=== PATIENT | female | born 1965 | race Two or more races ===

== ENCOUNTER 2016-10-22 12:09 | Emergency (ER) | payer OTHER ==
[2016-10-22 12:17] VITALS: TEMP 97.7
[2016-10-22] MEDS ORDERED: NS 1,000 ML IV ONE ×2 (12:31→14:49)
[2016-10-22] MEDS ORDERED: ONDANSETRON 4 MG/2 ML VIAL IVP ONE (12:32)
--- NOTE | 2016-10-22 12:37 | EDPHY ---
H & P Stated Complaint: whole upper body hurts Source: Patient, Family Exam Limitations: No limitations - Personal History LMP (Females 10-55): Post Menopausal Current Tetanus/Diphtheria Vaccine: Unsure Current Tetanus Diphtheria and Acellular Pertussis (TDAP): Unsure - Medical/Surgical History Hx Asthma: No Hx Chronic Respiratory Disease: No Hx Diabetes: No Hx Cardiac Disease: No Hx Renal Disease: No Hx Cirrhosis: No Hx Alcoholism: No Hx HIV/AIDS: No Hx Splenectomy or Spleen Trauma: No - Social History Smoking Status: Current every day smoker HPI/ROS: CHIEF COMPLAINT: chest pain, body aches, cough HISTORY OF PRESENT ILLNESS: complains of chest pain, shortness of breath, pain from her middle of her chest up. Pain started this morning upon waking. It actually started in the left shoulder and has spread to the entire upper portion of her body. It is severe, 10/10 pain worse with any kind of movement. No position of comfort. Has no cough at this time, but she does have some shortness of breath. She had fever and cough earlier this week. No abdominal urinary complaints. No falls or trauma. No headache. No neck pain or stiffness. No other associated complaints or modifying factors. REVIEW OF SYSTEMS: Ten systems reviewed and are negative unless otherwise noted in the HPI EXAMINATION General Appearance: Alert, no distress , in obvious pain, pacing in the room Head: normocephalic, atraumatic Eyes: Pupils equal and round, no conjunctival pallor or injection ENT, Mouth: Mucous membranes moist. Uvula midline. No erythema or edema. Neck: Normal inspection, supple, Tenderness to palpation of the trapezius. No meningismus Respiratory: Lungs are clear to auscultation Cardiovascular: tachycardic rate with Regular rhythm. No murmur. Gastrointestinal: Abdomen is soft and nontender . No CVA tenderness Back: tender to palpation and soft tissue of the thoracic and upper back. There is no midline tenderness at any level. No crepitus or deformity. Neurological: A&O, nonfocal, Strength is symmetric in all limbs. Skin: Warm and dry, no rash Extremities: Nontender, no pedal edema Psychiatric: Mood and affect normal DIFFERENTIAL DIAGNOSES: Including but not limited to Pneumonia, PC, bronchitis, pneumonitis, viral illness, influenza MDM: 12:33 p.m. Chest pain, back pain, body aches with pain generalized from her middle of her chest. She has no meningismus but she does complain of severe pain in all these areas. Laboratory studies have been ordered as well as CT scan of the chest. 1:40 p.m. patient is resting much more comfortably at this time. The pain medication is significantly improving her pain. She still has pain from the middle of her back up. Her neck is ranging at this time without meningismus or pain. Minimal headache. CT scan of the chest is pending at this time. Laboratory studies reveal leukocytosis but no other abnormality. She informs me that she has been seen by hematology and oncology for this leukocytosis, but they have found no abnormalities. chest x-ray has no pneumonia or pneumothorax but there are perihilar changes as noted in the report. CT scan will help us further delineate this. Vital signs are stable with mild tachycardia but no hypoxia and she is normotensive. 2:35 p.m. notified by radiologist Dr. Marin that the CT scan is negative for PE or pneumonia. No acute findings of any kind on the CT scan. I have re-evaluated the patient. She is feeling better although not resolved. She feels that her pain is tolerable at this time but she is worried that her pain would get worse when she goes home. I have ordered Toradol and I will reassess 3:00 p.m. pain is improving intolerable. We discussed discharge home with anti- inflammatories and pain medication as this is probably a viral syndrome causing a pleurisy and potentially even mild pericarditis. she is comfortable this plan. She will be discharged home with pain medications, nausea medicine, instructions to take anti-inflammatories [id number] every 6-8 hours. I would like her to call her primary care physician in the morning for follow-up. she is to return to the emergency department should her pain worsen or become intolerable to her with the medications we Have provided. She is comfortable this plan and will be discharged home in stable condition. SUPERVISION: Patient was evaluated in conjunction with the supervising physician. Please see their note for details. (Kristian Will) Constitutional: Initial Vital Signs Temperature (C) 97.7 F 10/22/16 12:15 Heart Rate 121 H 10/22/16 12:15 Respiratory Rate 20 10/22/16 12:15 Blood Pressure 134/99 H 02/16/17 12:15 O2 Sat (%) 97 10/22/16 12:15 O2 Delivery Mode Room Air O2 (L/minute) 2 Allergies/Adverse Reactions: No Known Allergies Allergy (Unverified 10/22/16 12:17) Home Medications: Medication Instructions Recorded Ondansetron Odt [Zofran Odt 4 mg 4 mg PO Q6 PRN #12 tab 10/22/16 (*)] oxyCODONE HCL/ACETAMINOPHEN 1 each PO Q6 PRN #20 tablet 10/22/16 [Percocet 7.5-325 mg Tablet] Medical Decision Making - Diagnostics EKG Interpretation: 12-lead EKG interpreted by me; official reading is in trace master. My interpretation is sinus tachycardia at 1:12 a.m. no acute ischemic changes. ( Scott Ospina) Other Provider: PHYSICIAN DOCUMENTATION: The patient was evaluated and managed by the Physician Glass Beveler. I have reviewed the chart and agree with the findings and plan of care as documented. I examined the patient personally at 12:40 p.m.. She describes having a cold with some chills on Wednesday and a feeling pretty good last night but waking up with symptoms. Started with left shoulder pain and now is left shoulder and neck and left-sided back pain which is much worse with any movement. Specifically her neck is more painful with rotation and with flexion or extension. Regular rate and rhythm will ability to speak in few sentences and no murmur auscultated. I can passively range her left shoulder and I think septic joint in the left shoulder is unlikely. Plan for IV pain medication, EKG, labs and imaging as ordered. CT chest reviewed personally by myself. My impression is this is likely to be a viral syndrome with myalgias and I think that meningitis is unlikely. I think acute coronary syndrome is unlikely. 1440: Patient feels better, normal range of motion of the neck. Results discussed. I am the secondary supervising physician. (Scott Ospina) - Data Points Laboratory Results: Laboratory Results 10/22/16 12:55 10/22/16 12:55 Medications Given: Discontinued Medications Hydromorphone HCl (Dilaudid) 1 mg IVP EDNOW ONE Stop: 10/22/16 13:26 Last Admin: 10/22/16 13:30 Dose: 1 mg Sodium Chloride (Ns) 1,000 mls @ 0 mls/hr IV ONCE ONE PRN Reason: Wide Open Stop: 10/22/16 12:32 Last Admin: 10/22/16 13:06 Dose: 1,000 mls Sodium Chloride (Ns) 1,000 mls @ 0 mls/hr IV ONCE ONE PRN Reason: Wide Open Stop: 10/22/16 14:50 Last Admin: 10/22/16 15:08 Dose: 1,000 mls Ketorolac Tromethamine (Toradol) 30 mg IM EDNOW ONE Stop: 10/22/16 14:38 Last Admin: 10/22/16 15:07 Dose: 30 mg Morphine Sulfate (Morphine) 6 mg IVP EDNOW ONE Stop: 10/22/16 12:33 Last Admin: 10/22/16 13:05 Dose: 6 mg Ondansetron HCl (Zofran) 4 mg IVP EDNOW ONE Stop: 10/22/16 12:33 Last Admin: 10/22/16 13:06 Dose: 4 mg Departure - Departure Disposition: Home, Routine, Self-Care Clinical Impression: Chest wall pain, Back pain, Shoulder pain Condition: Good Instructions: Pleurisy (ED), Back Pain (ED) Additional Instructions: Follow up with primary care physician for ongoing care. Return to the ER for worsening pain, chest pain, vomiting or fever Referrals: Tesha Warren MD [Primary Care Provider] - As per Instructions Prescriptions: Ondansetron Odt [Zofran Odt 4 mg (*)] 4 mg PO Q6 PRN #12 tab PRN Reason: Nausea/Vomiting, Use 1st oxyCODONE HCL/ACETAMINOPHEN [Percocet 7.5-325 mg Tablet] 1 each PO Q6 PRN #20 tablet PRN Reason: Pain, Mild
--- NOTE | 2016-10-22 13:01 | CPEKG ---
Heart Rate: 112 RR Interval: 536 P-R Interval: 160 QRSD Interval: 76 QT Interval: 340 QTC Interval: 464 P [place]: 43 QRS [place]: 53 T Wave [place]: 32 EKG Severity - OTHERWISE NORMAL ECG - EKG Impression: SINUS TACHYCARDIA Electronically Signed By: Scott Ospina 22-Oct-2016 13:05:09
[2016-10-22 13:12] LABS: % IMMATURE GRANULYOCYTES 0.5 % (0.0-1.1); ADD DIFF? NO; ADD MORPH? NO; ADD SCAN? NO; ATYPICAL LYMPHOCYTE FLAG 10 (0-99); FRAGMENT RBC FLAG 0 (0-99); HEMATOCRIT 48.1 % (38.0-47.0); HEMOGLOBIN 16.4 g/dL (12.6-16.3); LEFT SHIFT FLG 0 (0-99); LIPEMIA HEMOLYSIS FLAG 90 (0-99); MEAN CELL HEMOGLOBIN CONCENTR. 34.1 g/dL (32.4-36.7); MEAN CELL VOLUME 87.9 fL (81.5-99.8); MEAN PLATELET VOLUME 9.7 fL (8.7-11.7); PLATELET CLUMPS FLAG 0 (0-99); PLATELET COUNT 397 10^3/uL (150-400); RED BLOOD CELL COUNT 5.47 10^6/uL (4.18-5.33); RED CELL DISTRIBUTION WIDTH 13.2 % (11.5-15.2)
[2016-10-22 13:22] LABS: INR 0.93 (0.83-1.16); PROTIME(PATIENT) 12.4 SEC (12.0-15.0)
[2016-10-22] MEDS ORDERED: HYDROmorphONE/DILAUDID 1 MG/ML SYR IVP ONE (13:25)
[2016-10-22] MEDS ORDERED: HYDROmorphONE/DILAUDID 1 MG/ML SYR ONE (13:26)
[2016-10-22 13:33] LABS: ANION GAP 13 mEq/L (8-16); CARBON DIOXIDE 25 mEq/l (22-31); CHLORIDE 106 mEq/L (97-110); CREATININE 0.7 mg/dL (0.6-1.0); GLOMERULAR FILTRATION RATE > 60; GLUCOSE 109 mg/dL (70-100); POTASSIUM 4.4 mEq/L (3.5-5.2); SODIUM 144 mEq/L (134-144)
[2016-10-22 13:45] LABS: TROPONIN I < 0.012 ng/mL (0-0.034)
[2016-10-22] MEDS ORDERED: IOPAMIDOL (ISOVUE 370) 100 ML BTL IV ONE (14:06)
[2016-10-22 14:08] LABS: LACGHOST ORDER
[2016-10-22] MEDS ORDERED: KETOROLAC 30 MG/1 ML SDV IM ONE (14:37)
[2016-10-22 15:10] VITALS: RESP 18
[2016-10-22 15:59] VITALS: BP 139/72; PULSE 100; O2SAT 97
== END 2016-10-22 15:58 | disposition home or self-care (01) ==
DX: R07.89 Other chest pain (principal); M54.6 Pain in thoracic spine; M25.512 Pain in left shoulder; F17.200 Nicotine dependence, unspecified, uncomplicated
CPT/HCPCS: 96374; J1170; J1885; J2405; Q9967

== ENCOUNTER → 2017-04-20 | Outpatient (CLI) | payer OTHER | LOC: FIMAGING 11:37 | PROVIDERS: ATTEND Internal Medicine | DX: Z12.31 Encounter for screening mammogram for malignant neoplasm of breast (principal); Z80.3 Family history of malignant neoplasm of breast | CPT/HCPCS: G0202 ==

== ENCOUNTER → 2017-04-21 | Outpatient (CLI) | payer OTHER | LOC: FIMAGING 11:26 | PROVIDERS: ATTEND Internal Medicine | DX: R92.0 Mammographic microcalcification found on diagnostic imaging of breast (principal) | CPT/HCPCS: G0204 ==

== ENCOUNTER → 2017-05-04 | Day surgery (SDC) | payer OTHER ==
[~2017-05-04] MED LIST: BUPIVACAINE 0.5% 10 ML SDV ONE; LIDO/EPI 1% **Not for Epidural 20 ML MDV ONE; LIDOCAINE 1% 300 MG/30 ML SDV ONE; THROMBIN (BOVINE) 5,000 UNIT VIAL TP ONE
== END | disposition home or self-care (01) ==
LOC: FIMAGING 07:12
PROVIDERS: ATTEND Internal Medicine
PROC: 0HBV3ZX Excision of Bilateral Breast, Percutaneous Approach, Diagnostic (ICD-10-PCS; principal; 2017-05-04)
PROC: BH02ZZZ Plain Radiography of Bilateral Breasts (ICD-10-PCS; principal; 2017-05-04)
DX: C50.911 Malignant neoplasm of unspecified site of right female breast (principal); N60.12 Diffuse cystic mastopathy of left breast; R92.0 Mammographic microcalcification found on diagnostic imaging of breast; Z80.3 Family history of malignant neoplasm of breast; Z17.0 Estrogen receptor positive status [ER+]
CPT/HCPCS: G0204

== ENCOUNTER → 2017-05-18 | Outpatient (CLI) | payer OTHER ==
[~2017-05-18] MED LIST changes: -BUPIVACAINE 0.5% 10 ML SDV ONE; +GADOBUTROL 10 ML VIAL IVP ONE; -LIDO/EPI 1% **Not for Epidural 20 ML MDV ONE; -LIDOCAINE 1% 300 MG/30 ML SDV ONE; -THROMBIN (BOVINE) 5,000 UNIT VIAL TP ONE
== END ==
LOC: FIMAGING 14:01
PROVIDERS: ATTEND Surgery
DX: C50.411 Malignant neoplasm of upper-outer quadrant of right female breast (principal); N60.12 Diffuse cystic mastopathy of left breast
CPT/HCPCS: 0159T; A9585; C8908

== ENCOUNTER → 2017-05-26 | Outpatient (CLI) | payer OTHER ==
[~2017-05-26] MED LIST changes: +BUPIVACAINE 0.5% 10 ML SDV ONE; -GADOBUTROL 10 ML VIAL IVP ONE; +LIDO/EPI 1% **Not for Epidural 20 ML MDV ONE; +LIDO/EPI 1% **for epidural** 30 ML SDV ONE; +LIDOCAINE 1% 300 MG/30 ML SDV ONE; +THROMBIN (BOVINE) 5,000 UNIT VIAL TP ONE
== END ==
LOC: FIMAGING 07:02
PROVIDERS: ATTEND Surgery
PROC: 07B63ZX Excision of Left Axillary Lymphatic, Percutaneous Approach, Diagnostic (ICD-10-PCS; principal; 2017-05-26)
DX: R59.0 Localized enlarged lymph nodes (principal)

== ENCOUNTER → 2017-06-07 | Outpatient (CLI) | payer OTHER ==
[~2017-06-07] MED LIST changes: -BUPIVACAINE 0.5% 10 ML SDV ONE; +BUPIVACAINE 0.5% 30 ML SDV ONE; +FLUMAZENIL 0.5 MG/5 ML MDV IVP ONE; +GADOBUTROL 10 ML VIAL IVP ONE; -LIDO/EPI 1% **Not for Epidural 20 ML MDV ONE; -LIDO/EPI 1% **for epidural** 30 ML SDV ONE; -LIDOCAINE 1% 300 MG/30 ML SDV ONE; +LIDOCAINE 1% 5 ML SDV ONE; +MIDAZOLAM 2 MG/2 ML VIAL ONE; +NA BICARBONATE 50 MEQ/50 ML VIAL ONE; +NALOXONE HCL 0.4 MG/ML INJ ONE; +NS 1,000 ML IV SCH; -THROMBIN (BOVINE) 5,000 UNIT VIAL TP ONE; +fentaNYL 100 MCG/2 ML INJ ONE
== END ==
LOC: FIMAGING 07:47
PROVIDERS: ATTEND Surgery
PROC: 0HBU3ZX Excision of Left Breast, Percutaneous Approach, Diagnostic (ICD-10-PCS; principal; 2017-06-07)
DX: N60.92 Unspecified benign mammary dysplasia of left breast (principal); R92.0 Mammographic microcalcification found on diagnostic imaging of breast; N60.02 Solitary cyst of left breast; N60.22 Fibroadenosis of left breast; Z85.3 Personal history of malignant neoplasm of breast; Z87.891 Personal history of nicotine dependence
CPT/HCPCS: A9585; G0206; J2250; J2310; J3010

== ENCOUNTER → 2017-06-23 | Day surgery (SDC) | payer OTHER ==
[~2017-06-23] MED LIST changes: -BUPIVACAINE 0.5% 30 ML SDV ONE; -FLUMAZENIL 0.5 MG/5 ML MDV IVP ONE; -GADOBUTROL 10 ML VIAL IVP ONE; +LIDOCAINE 1% 300 MG/30 ML SDV ONE; -LIDOCAINE 1% 5 ML SDV ONE; -MIDAZOLAM 2 MG/2 ML VIAL ONE; -NA BICARBONATE 50 MEQ/50 ML VIAL ONE; -NALOXONE HCL 0.4 MG/ML INJ ONE; -NS 1,000 ML IV SCH; -fentaNYL 100 MCG/2 ML INJ ONE
== END | disposition home or self-care (01) ==
LOC: FIMAGING 07:02
PROVIDERS: ATTEND Surgery
DX: C50.911 Malignant neoplasm of unspecified site of right female breast (principal); R92.0 Mammographic microcalcification found on diagnostic imaging of breast
CPT/HCPCS: 19281; 76098; 78195; A9520

== ENCOUNTER → 2017-10-14 | Outpatient (CLI) | payer OTHER | LOC: FIMAGING 10:51 | PROVIDERS: ATTEND Radiology Radiation Oncology | DX: J40 Bronchitis, not specified as acute or chronic (principal); J98.11 Atelectasis ==

== ENCOUNTER 2017-10-15 14:02 | Emergency (ER) | payer OTHER ==
[2017-10-15 14:11] VITALS: RESP 18
--- NOTE | 2017-10-15 14:15 | EDPHY ---
H & P Stated Complaint: difficulty breathing--need CT - Personal History LMP (Females 10-55): Unknown Current Tetanus Diphtheria and Acellular Pertussis (TDAP): Yes - Medical/Surgical History Hx Asthma: No Hx Chronic Respiratory Disease: No Hx Diabetes: No Hx Cardiac Disease: No Hx Renal Disease: No Hx Cirrhosis: No Hx Alcoholism: No Hx HIV/AIDS: No Hx Splenectomy or Spleen Trauma: No Other PMH: Breast CA (current Radiation, finished chemo 10/2017) - Social History Smoking Status: Former smoker <Pasha Askew - Last Filed: 10/15/17 15:10> <Thor Barrera - Last Filed: 10/15/17 16:30> Time Seen by Provider: 10/15/17 14:15 Constitutional: Initial Vital Signs Temperature (C) 37.4 C 10/15/17 14:09 Heart Rate 130 H 10/15/17 14:09 Respiratory Rate 18 10/15/17 14:09 Blood Pressure 130/69 H 10/15/17 14:09 O2 Sat (%) 95 10/15/17 14:09 O2 Delivery Mode Room Air Allergies/Adverse Reactions: NKDA. Medipore tape allergy. Allergy (Intermediate, Uncoded 06/03/17 15:02) Itching Home Medications: Medication Instructions Recorded levOFLOXACIN [levAQUIN (*)] 500 mg PO DAILY #5 tab 10/15/17 Medical Decision Making <Pasha Askew - Last Filed: 10/15/17 15:10> - Diagnostics Imaging: Discussed imaging studies w/ auto service station attendant Radiologist, I viewed and interpreted images myself <Thor Barrera - Last Filed: 10/15/17 16:30> - Diagnostics Imaging Results: Imaging Impressions Chest/Thorax CTA 10/15/17 14:19 Impression: 1. No pulmonary embolic disease. 2. Right posterior 12th rib fracture, not obviously pathologic. 3. Mild T7 compression of unknown age. Results called and discussed with Pasha Askew MD, at 10/15/2017 15:20 General information for patients regarding this examination can be found at [email or web address]. If you have questions or comments about this report, please contact me at (hospital) or [phone] (cell). Imaging Impressions Chest/Thorax CTA 10/15/17 14:19 Impression: 1. No pulmonary embolic disease. 2. Right posterior 12th rib fracture, not obviously pathologic. 3. Mild T7 compression of unknown age. Results called and discussed with Pasha Askew MD, at 10/15/2017 15:20 General information for patients regarding this examination can be found at [email or web address]. If you have questions or comments about this report, please contact me at [phone] (hospital) or [phone] (cell). I discussed results of CT angiogram as noted above with Dr. Vish Bey. ( Thor Barrera) ED Course/Re-evaluation: CHIEF COMPLAINT: Dyspnea HISTORY OF PRESENT ILLNESS: The patient is a 51 y/o female arriving with her complaining of shortness of breath and pleuritic pain for the last week. She is currently being treated for breast cancer with radiation. She recently completed chemotherapy. She flew to [place] last week and noticed bilateral leg swelling upon her return here. She has chills at baseline, but denies feeling feverish. She has had a dry cough recently with this shortness of breath. A chest x-ray earlier this week looked like bronchitis per patient. She was referred here by her doctor for a chest CTA to rule out PE. No blood clot history. REVIEW OF SYSTEMS: A 10 point review of systems was performed and is negative with the exception of the elements mentioned in the history of present illness. PHYSICAL EXAM: HR 130, BP, O2 Sat, RR. Temp noted General Appearance: Alert, well hydrated, appropriate, and non-toxic appearing. Head: Atraumatic without scalp tenderness or obvious injury Eyes: Pupils equal, round, reactive to light and accommodation, EOMI, no trauma , no injection. Nose: Atraumatic, no rhinorrhea, clear. Throat: Mucus membranes moist. Neck: Supple, nontender, no lymphadenopathy. Respiratory: No retractions, no distress, no wheezes, and no accessory muscle use. Lungs are clear to auscultation bilaterally. Shallow inspiration due to pleuritic pain. Cardiovascular: Tachycardia regular rate and rhythm, no murmurs, rubs, or gallops. Good capillary refill all extremities. Gastrointestinal: Abdomen is soft, nontender, non-distended, no masses, no rebound, no guarding, no peritoneal signs. Musculoskeletal: Normal active ROM of all extremities, atraumatic. Neurological: Alert, appropriate, and interactive. The patient has non-focal cranial nerves, motor, sensory, and cerebellar exam. Skin: No rashes, good turgor, no nodules on palpation. Past medical history: Breast cancer - recently completed chemotherapy, still undergoing radiation Past surgical history: No recent surgeries. Family history: Noncontributory Social history: at bedside. DIAGNOSTICS/PROCEDURES/CRITICAL CARE TIME: Chest CTA pending. DIFFERENTIAL DIAGNOSIS: The differential diagnosis for the patient's shortness of breath and hypoxemia included but was not limited to pneumonia, myocardial infarction, acute mountain sickness, high altitude pulmonary edema, congestive heart failure, and pulmonary embolus. MEDICAL DECISION MAKING: This is a 51 y/o female with breast cancer who recently completed chemotherapy and is still undergoing radiation treatment. She presents with a 1-week history of dyspnea and pleuritic pain. She is notably tachycardic here with a rate of 130 and breathing shallowly due to pain. Presentation is concerning for PE. Plan for IV, labs, and chest CTA. 1500: Patient care signed out to Dr. Barrera at shift change pending labs and CTA results. (Pasha Askew) I took over care of this patient at 3:00 p.m.. This patient has a history of breast cancer she recently came off chemotherapy and has also been undergoing radiation therapy. She presented complaining of shortness of breath and a fast heart rate. CT angiogram of the chest as well as blood work including troponin are pending. 4:20 p.m., patient re-evaluated. She is resting comfortably. Vital signs reviewed and are normal. She is afebrile. Room air pulse oximetry is 96%. I discussed the results of her blood work as well as her CT angiogram of her chest. I discussed admission to our hospitalist service for observation overnight. She does not want to do this. She feels much better and feels like she can go home. Secondary to her cough and congestion although likely viral she has been on chemotherapy and is immune compromised, I will start her on Levaquin, 500 mg daily for 5 days. Plan will be to have her follow up with her oncologist Dr. Yani Casillas on Wednesday for re-evaluation. At that time it can be decided whether not to continue antibiotics. She feels comfortable with this plan. Return to emergency department precautions were thoroughly reviewed with her and her significant other. She can easily return to the emergency department should her condition worsen. All of her questions were answered. She was discharged in good condition. (Thor Barrera) - Data Points Laboratory Results: Laboratory Results 10/15/17 15:10 10/15/17 10/15/17 15:10 15:10 PT 14.3 SEC SEC (12.0-15.0) INR 1.09 (0.83-1.16) APTT 31.5 SEC SEC (23.0-38.0) Sodium 138 mEq/L mEq/L (135-145) Potassium 3.8 mEq/L mEq/L (3.5-5.2) Chloride 105 mEq/L mEq/L (97-110) Carbon Dioxide 20 mEq/l L mEq/l (22-31) Anion Gap 13 mEq/L mEq/L (8-16) BUN 10 mg/dL mg/dL (7-23) Creatinine 0.6 mg/dL mg/dL (0.6-1.0) Estimated GFR > 60 Glucose 82 mg/dL mg/dL (70-100) Calcium 8.7 mg/dL mg/dL (8.5-10.4) Troponin I < 0.012 ng/mL ng/mL (0.000-0.034) NT-Pro-B Natriuret Pep 31 pg/mL pg/mL (0-125) Departure <Pasha Askew - Last Filed: 10/15/17 15:10> <Thor Barrera - Last Filed: 10/15/17 16:30> - Departure Disposition: Home, Routine, Self-Care Clinical Impression: Acute bronchitis Dyspnea Qualifiers: Dyspnea type: shortness of breath Qualified Code(s): R06.02 - Shortness of breath Condition: Good Instructions: Levofloxacin (By mouth), Dyspnea (ED) Additional Instructions: Follow up with your primary care provider and oncologist as planned. Use Tylenol and ibuprofen as directed on the packaging if needed for pain or fever. Return to the ED for any worsening of condition. Read and follow provided instructions. Follow-up with your oncologist, Dr. Yani Casillas, on Wednesday for re-evaluation as discussed. I can be decided at that time whether to continue you on Levaquin, the antibiotic I prescribed you. Albuterol meter dose inhaler: 1-2 puffs every 2-4 hours as needed for cough and shortness of breath. Return to the emergency department for worsening symptoms, worsening shortness of breath, chest pain, fever, worsening cough or other serious concerns. Referrals: Pete Sterling MD [Primary Care Provider] - As per Instructions Prescriptions: levOFLOXACIN [levAQUIN (*)] 500 mg PO DAILY #5 tab Report Scribed for: Pasha Askew Report Scribed by: Naima Ridely Date of Report: 10/15/17 Time of Report: 15:09 <Pasha Askew - Last Filed: 10/15/17 15:10>
[2017-10-15] MEDS ORDERED: IOPAMIDOL (ISOVUE 370) 100 ML BTL IV ONE (14:30)
[2017-10-15 15:28] LABS: INR 1.09 (0.83-1.16); PROTIME(PATIENT) 14.3 SEC (12.0-15.0)
[2017-10-15 16:13] VITALS: BP 95/64; PULSE 93; TEMP 98.8; O2SAT 93
[2017-10-15] MEDS ORDERED: ALBUTEROL INH PREPACK MDI TAKEHOME ONE (16:32)
== END 2017-10-15 16:37 | disposition home or self-care (01) ==
DX: J20.9 Acute bronchitis, unspecified (principal); Z85.3 Personal history of malignant neoplasm of breast; Z87.891 Personal history of nicotine dependence
CPT/HCPCS: Q9967

== ENCOUNTER → 2017-12-31 | Outpatient (CLI) | payer OTHER | LOC: BMCIMAGING 10:29 | PROVIDERS: ATTEND Internal Medicine Hematology & Oncology | DX: Z13.820 Encounter for screening for osteoporosis (principal); M25.50 Pain in unspecified joint; C50.411 Malignant neoplasm of upper-outer quadrant of right female breast ==

== ENCOUNTER → 2018-01-26 | Outpatient (CLI) | payer OTHER | LOC: FIMAGING 10:45 | PROVIDERS: ATTEND Internal Medicine Hematology & Oncology | DX: M25.551 Pain in right hip (principal); Z85.3 Personal history of malignant neoplasm of breast ==

== ENCOUNTER → 2018-04-26 | Outpatient (CLI) | payer OTHER | LOC: FIMAGING 12:28 | PROVIDERS: ATTEND Internal Medicine Hematology & Oncology | DX: Z08 Encounter for follow-up examination after completed treatment for malignant neoplasm (principal); Z85.3 Personal history of malignant neoplasm of breast ==